=== PATIENT | male | born 1960 | race Caucasian/White ===

== ENCOUNTER 2025-07-26 15:46 | Observation (INO) ==
--- NOTE | 2025-07-26 16:54 | RS.CXNS ---
Date of scheduled appointment: 07/26/25 Type: Cancel Reason for Cancel/NS: Pt sent for venous scan due to redness and pain in left (surgical) LE. Radiology department called to let us know he would not be attending therapy today.
[2025-07-26 18:20] LABS: IMMATURE GRANULOCYTE # (AUTO) 0.1 (0.0-1.0); IMMATURE GRANULOCYTE % (AUTO) 0.6 % (0.0-5.0); RDW COEFFICIENT OF VARIATION 13.2 % (11.6-14.8)
[2025-07-26 18:31] LABS: INR 1.1 SI (0.0-3.9)
[2025-07-26 18:33] LABS: CREATININE 1.09 mg/dL (0.60-1.10)
--- NOTE | 2025-07-26 21:07 | ED.PDOC ---
General [facility] ED Provider: Dr. TEJINDER CALL MD Chief Complaint: Extremity Swelling/Pain Stated Complaint: Patient is a 64-year-old male that is presenting to the emergency department from home via personal vehicle for evaluation of left lower extremity edema and pain. Patient states that he had a left knee total arthroplasty performed 4 days ago and then developed erythema and swelling around the knee as well as proximal calf around 2 days after this. He had an outpatient ultrasound ordered by his primary care physician and it did show signs consistent with a popliteal and peroneal DVT. Patient notes that he was started on Eliquis 2.5 mg twice daily immediately after the operation and has had a total of 8 doses. Has been compliant with his medication without any missed doses. He has also been taking a prophylactic antibiotic after the operation as well. He denies any fevers or chills. Denies noticed any purulent drainage from the postoperative site. States that he has had DVTs in the past and had a present similar to this. Denies any pleuritic pain, hemoptysis, or shortness of breath. Denies any chest pain. Time Seen by Provider: 07/26/25 16:30 Mode of Arrival: Walk-In Information Source: Patient Exam Limitations: No limitations Primary Care Provider: AURE JAMA Nursing and Triage Documentation Reviewed and Agree: Yes Opioid Naive vs. Tolerant Does Patient Take Opioids?: No Is Patient Opioid Naive?: Yes What is Opioid Naive?: *Opioid Naive implies the patient is not already taking opioids or not chronically receiving opioids on a daily basis. *PRN dosing is not "usually" associated with tolerance. *Patients are at higher risk of over-sedation and aspiration. What is Opioid Tolerant?: *Opioid Tolerance implies less than the expected response to an opioid. *Acquired tolerance is defined by the patient taking 60mg of oral morphine daily (or equianalgesic dose of another opioid) for 1 week or more. *Often associated with chronic pain. *May take more than usual dose to achieve desired pain control. Review of Systems Review Of Systems Constitutional: Denies Fever or Weakness Respiratory: Reports No symptoms; Denies Shortness of Breath Cardiac: Reports No symptoms GI: Reports No symptoms Musculoskeletal: Reports Muscle pain Skin: Reports Change in color Neurological: Reports No symptoms [facility] Medical History (Updated 07/27/25 @ 01:33 by ERICKA DUNNE RN) Factor 5 Leiden mutation, heterozygous D68.51 - Activated protein C resistance (ICD-10) Family History FATHER Coronary artery disease Diabetes BROTHER Coronary artery disease Mother Heart valve problem Social History Smoking and tobacco status: Never smoker Alcohol intake: never Surgical History (Updated 07/27/25 @ 01:33 by ERICKA DUNNE RN) H/O bilateral inguinal hernia repair Z98.890 - Other specified postprocedural states (ICD-10) Z87.19 - Personal history of other diseases of the digestive system (ICD-10) S/P revision of total knee Z96.659 - Presence of unspecified artificial knee joint (ICD-10) Total knee replacement status Z96.659 - Presence of unspecified artificial knee joint (ICD-10) Physical Exam Physical Exam Appearance: Reports Well-appearing Ill-appearing: None Pain Distress: Mild Neck: Supple Respiratory: Reports Airway patent, Breath sounds clear and Breath sounds equal Cardiovascular: Reports RRR and Pulses normal (Including bilateral DP pulses that were 2+) GI/: Reports Soft and Nontender Musculoskeletal: Reports Calf tenderness (Tenderness at the popliteal fossa as well as proximal calf on the left side but there is no diffuse tenderness to palpation over the left knee joint.) and Other (Edema and tenderness to palpation diffusely over the left proximal calf as well as popliteal fossa. Patient has a well-healing postsurgical scar over his left anterior knee joint without any signs of purulent drainage. ) Skin: Reports Other (Erythema without increased warmth over the proximal calf and distal thigh circumferentially) Neurological: Reports Sensation intact Physician Progress Note Physician Progress Note: Patient is a 64-year-old male with a history of factor V Leiden deficiency that is presenting to the emergency department for treatment of suspected DVT. Patient's primary care physician was concerned for possible DVT given his history of factor V Leiden deficiency and recent arthroplasty of the left knee. They did obtain an outpatient ultrasound study with results provided to us that show signs of DVT in the popliteal as well as peroneal veins. Patient was prophylactically on Eliquis 2.5 mg twice daily for the last 4 days after his operation which would make this a breakthrough DVT. We therefore will have the patient admitted and increase his Eliquis dosage. Should be noted that I am not concerned currently for a cellulitis or septic arthritis as the patient does not have significant tenderness to palpation on examination nor any increased warmth. Furthermore he has been prophylactically on antibiotics since the operation was performed has not been having any systemic infectious symptoms. Examination of the postsurgical site showed that it was healing well and had no signs of infection. Basic screening labs were obtained given the patient will be admitted and it showed a CBC with a mild anemia of 12.9. Basic metabolic panel and unremarkable findings. Admitted to observation bed for further management of peroneal and popliteal DVT Course Course 07/26/25 18:15 07/26/25 18:15 Orders, Labs, Meds: Lab Review 07/26/25 18:15 WBC 7.97 RBC 4.41 L Hgb 12.9 L Hct 39.6 L MCV 89.8 MCH 29.3 MCHC 32.6 RDW Coeff of Juanito 13.2 Plt Count 175 Immature Gran % (Auto) 0.6 Neut % (Auto) 69.2 Lymph % (Auto) 16.9 [place] % (Auto) 10.8 H Eos % (Auto) 2.1 Baso % (Auto) 0.4 Neut # (Auto) 5.5 Lymph # (Auto) 1.4 [place] # (Auto) 0.9 Eos # (Auto) 0.2 Baso # (Auto) 0.0 Immature Gran # (Auto) 0.1 PT 11.3 H INR 1.10 APTT 28.7 Sodium 135.1 Potassium 4.48 Chloride 99.2 Carbon Dioxide 29.5 Anion Gap 10.88 BUN 20.2 H Creatinine 1.09 Estimated GFR (MDRD) 68.00 BUN/Creatinine Ratio 18.53 Glucose 103.2 Calcium 9.67 Orders Category Date Time Status PLACE PATIENT OBSERVATION .TO [facility] (NON-MONITORED ADMISSION 07/26/25 19:25 Active BED) ACTIVITY .Early Mobilization for VTE Prevention CARE 07/26/25 19:53 Active INTAKE & OUTPUT Q8HR CARE 07/26/25 19:25 Active IP: INSERT SALINE LOCK ONCE CARE 07/26/25 19:25 Active VITAL SIGNS Q4H CARE 07/26/25 19:25 Active REGULAR DIET DIETARY 07/26/25 Dinner Ordered BASIC METABOLIC PANEL Stat LAB 07/26/25 18:15 Completed CBC W/ AUTO DIFF DAILY@0600 LAB 07/27/25 06:00 Ordered CBC W/ AUTO DIFF DAILY@0600 LAB 07/28/25 06:00 Ordered CBC W/ AUTO DIFF Stat LAB 07/26/25 18:15 Completed COMPREHENSIVE METABOLIC PANEL DAILY@0600 LAB 07/27/25 06:00 Ordered COMPREHENSIVE METABOLIC PANEL DAILY@0600 LAB 07/28/25 06:00 Ordered PT WITH INR Stat LAB 07/26/25 18:15 Completed PTT [PARTIAL THROMBOPLASTIN TIME] Stat LAB 07/26/25 18:15 Completed Acetaminophen [Tylenol] Meds 07/26/25 19:53 Active 650 mg PO Q4H PRN Apixaban [Eliquis] Meds 07/26/25 21:00 Active 10 mg PO BID RESUSCITATION STATUS Routine OTHERS 07/26/25 19:25 Ordered Medications Generic Name Dose Route Start Last Admin Trade Name Freq PRN Reason Stop Dose Admin Acetaminophen 650 mg 07/26/25 19:53 Acetaminophen 325 Mg Tablet PO Q4H PRN Mild Pain Acetaminophen 1,000 mg 07/26/25 23:32 Acetaminophen 500 Mg Tablet PO Q6H PRN Pain Apixaban 10 mg 07/26/25 21:00 07/26/25 21:12 Apixaban 5 Mg Tab PO 08/02/25 20:59 10 mg BID ROSS Administration Celecoxib 200 mg 07/27/25 09:00 Celecoxib 100 Mg Capsule PO BID ROSS Cyclobenzaprine HCl 10 mg 07/26/25 23:32 07/26/25 23:55 Cyclobenzaprine Hcl 10 Mg Tablet PO 10 mg TID PRN Administration muscle spasms Non-Formulary Medication 500 mg 07/26/25 23:45 Cefadroxil PO BID ROSS Oxycodone HCl 5 mg 07/26/25 23:47 07/26/25 23:55 Oxycodone Hcl 5 Mg Tablet PO 5 mg Q6H PRN Administration MODERATE PAIN Pregabalin 75 mg 07/26/25 23:45 07/26/25 23:55 Pregabalin 75 Mg Capsule PO 75 mg BID ROSS Administration Vital Signs: Temp Pulse Resp BP Pulse Ox 07/26/25 16:40 98.0 F 78 20 119/76 97 Discharge Plan Discharge Patient Disposition: PLACED OBSERVATION Discharge Problem: DVT (deep venous thrombosis), Edema of lower extremity Discharge Problem: (Ruled Out): Blood clot in vein Did you review [place] [employer] for ALL controlled substances?: Not Applicable ED Provider: TEJINDER CALL
[2025-07-26] MEDS: ELIQUIS PO SCH (21:12)
[2025-07-26] MEDS: OXYCODONE PO PRN (23:55)
[2025-07-26] MEDS: FLEXERIL PO PRN (23:55)
[2025-07-26] MEDS: LYRICA PO SCH (23:55)
[2025-07-27 01:50] VITALS: RESP 18; BMI 22.7
[2025-07-27] MEDS: TYLENOL PO PRN ×2 (03:53→08:19)
[2025-07-27 05:17] LABS: IMMATURE GRANULOCYTE # (AUTO) 0.1 (0.0-1.0); IMMATURE GRANULOCYTE % (AUTO) 0.8 % (0.0-5.0); RDW COEFFICIENT OF VARIATION 13.3 % (11.6-14.8)
[2025-07-27 05:24] VITALS: BP 122/71; PULSE 78; TEMP 97.5
[2025-07-27 05:31] LABS: CREATININE 0.89 mg/dL (0.60-1.10)
[2025-07-27] MEDS: CELEBREX PO SCH (08:57)
--- NOTE | 2025-07-27 09:12 | PCM.SS ---
[facility] Ad[facility] Date Admission Date: 07/26/25 Discharge Date Discharge Date: 07/27/25 Primary Care Physician Primary Care Physician: AURE JAMA Chief Complaint Reason For Visit: BREAKTHROUGH DVT History of Present Illness History of Present Illness: Admitted 07/26/25 20:12, this 64 year old /WHITE/M with pmh of Factor 5 presented to the ER with c/o DVT to LLE. Patient states he had L TKA revision in [place] on Tuesday07/23/25 and began noticing significant pain, redness, and swelling to the LLE. Contacted PCP and was sent for US of the leg. Found to have DVT of the popliteal and peroneal veins. Patient was presscribed eliquis 2.5 mg twice a day for post-op prophylaxis and has had a total of 8 doses. Also is taking prophylactic antibiotic as well. Denies any fever, chills, drainage to the post-op site or other symptoms. States the pain to his knee is worse than it has been but discussed this is likely to the DVT present as well. Denies any other complaints at this time. Admitted to med/surg observation. [facility] Medical History Factor 5 Leiden mutation, heterozygous D68.51 - Activated protein C resistance (ICD-10) Surgical History H/O bilateral inguinal hernia repair Z98.890 - Other specified postprocedural states (ICD-10) Z87.19 - Personal history of other diseases of the digestive system (ICD-10) S/P revision of total knee Z96.659 - Presence of unspecified artificial knee joint (ICD-10) Total knee replacement status Z96.659 - Presence of unspecified artificial knee joint (ICD-10) Family History FATHER Coronary artery disease Diabetes BROTHER Coronary artery disease Mother Heart valve problem Social History Smoking and tobacco status: Never smoker Alcohol intake: never Medications Mecications: Medications at Discharge (Home Meds & RX) acetaminophen 500 mg tablet 1,000 mg PO Q6H PRN fever or pain 07/26/25 apixaban 2.5 mg tablet (Eliquis) 2.5 mg PO BID 07/26/25 cefadroxil 500 mg capsule 500 mg PO BID 07/26/25 celecoxib 200 mg capsule (Celebrex) 200 mg PO BID 07/26/25 cyclobenzaprine 10 mg tablet 10 mg PO TID PRN muscle spasm 07/26/25 oxycodone 5 mg capsule 5 mg PO Q6H PRN pain 07/26/25 pregabalin 75 mg capsule (Lyrica) 75 mg PO BID 07/26/25 Allergies Allergies Allergy/AdvReac Type Severity Reaction Status Date / Time No Known Allergies Allergy Unverified 07/26/25 16:48 Review of Systems Constitutional: Reports No symptoms; Denies Fever, Chills or Sweats Head: Reports Normocephalic Eyes: Reports No symptoms Ears: Reports No symptoms Nose: Reports No symptoms Mouth: Reports No symptoms Throat: Reports No symptoms Cardiovascular: Reports No symptoms Respiratory: Reports No symptoms Gastrointestinal: Reports No symptoms Genitourinary: Reports No Symptoms Musculoskeletal: Reports Other (LLE pain, swelling, redness, warmth) Endocrine: Reports No symptoms Hematology: Reports No symptoms Immunology: Reports No symptoms Neurological: Reports No symptoms Psychiatric: Reports No symptoms Physical Examination Appearance: Positive No Apparent Distress and Alert and Oriented x3 Head: Positive Normocephalic and Atraumatic Eyes: Positive Not Examined ENT: Positive Not Examined Neck: Positive Supple and Trachea Midline Heart: Positive RRR and No Murmurs Respiratory: Positive Airway patent, Breath Sounds Clear, Bilaterally, Breath Sounds Equal and Respirations Nonlabored GI/: Positive Soft, Nontender, Bowel sounds normal and No Distention Extremities: Positive Edema (to L knee and mild down the leg, erythema surrounding post-op dressing) and Pedal Pulses Palpable Bilaterally Neurological: Positive Sensation Intact, Motor Intact, Reflexes Intact, Alert and Oriented Vital Signs (Last 4 Hours) Vital Signs Last 4 Hours: Vital Signs: Last 4 Hours 07/27/25 05:22 07/27/25 06:00 Temperature 97.5 F L Temperature Source Temporal Artery Scan Pulse Rate 78 Respiratory Rate 18 Blood Pressure 122/71 Blood Pressure Mean 88 Blood Pressure Location Right Arm Blood Pressure Position Supine O2 Sat by Pulse Oximetry 96 Oxygen Delivery Method Room Air Room Air Labs This Visit Labs This Visit: Labs This Visit 07/26/25 07/27/25 18:15 04:57 WBC 7.97 6.03 RBC 4.41 L 4.08 L Hgb 12.9 L 12.0 L Hct 39.6 L 37.4 L MCV 89.8 91.7 MCH 29.3 29.4 MCHC 32.6 32.1 RDW Coeff of Juanito 13.2 13.3 Plt Count 175 155 Immature Gran % (Auto) 0.6 0.8 Neut % (Auto) 69.2 72.2 Lymph % (Auto) 16.9 12.6 Love % (Auto) 10.8 H 11.8 H Eos % (Auto) 2.1 1.8 Baso % (Auto) 0.4 0.8 Neut # (Auto) 5.5 4.4 Lymph # (Auto) 1.4 0.8 Love # (Auto) 0.9 0.7 Eos # (Auto) 0.2 0.1 Baso # (Auto) 0.0 0.1 Immature Gran # (Auto) 0.1 0.1 PT 11.3 H INR 1.10 APTT 28.7 Sodium 135.1 132.9 L Potassium 4.48 4.32 Chloride 99.2 101.7 Carbon Dioxide 29.5 25.9 Anion Gap 10.88 9.62 BUN 20.2 H 19.4 Creatinine 1.09 0.89 Estimated GFR (MDRD) 68.00 86.00 BUN/Creatinine Ratio 18.53 21.79 Glucose 103.2 137.0 H Calcium 9.67 8.80 Total Bilirubin 0.44 AST 22.5 ALT 17.1 Alkaline Phosphatase 56.8 Total Protein 6.31 Albumin 3.45 L Globulin 2.86 Albumin/Globulin Ratio 1.20 Review Review Statement: I have independently reviewed and interpreted the labs/EKGs/imaging that were ordered by the ER provider. I have reviewed all outside records that are available currently in our EMR including imaging/notes/labs from previous visits. Plan Reccomendations/Plan: 1. DVT s/p L TKA revision - eliquis 10 mg twice a day x 7 days then 5 mg twice a day thereafter 2. S/P L TKA revision - continue pain regimen and antibiotic prophylaxis 3. Factor 5 Deficiency - not currently on any medications for this, follows with Hem Additional Planning: Case discussed with ED Physician, Dr. Duncan. DVT Prophylaxis: Eliquis Disposition: Admit to: Med/Surg Observation Discussed Plan of Care with Dr. Sanju Garnett. If patient discharged with Left Ventricular Systolic Dysfunction: na Discharged with a beta frank? [] If no, why not? [] Discharged with an temitope/arb? [] If no, why not? [] Review With Patient Reviewed with Patient and Family: Patient and family have been counseled on condition and care plan and have no immediate questions. I have personally discussed and reviewed the patient's visit/current labs/imaging/decision making with Dr. Polo Garnett, my supervising attending. Total number of minutes spent with patient 85 min. More than 50% of the time spent with this patient was devoted to counseling and coordination of care. Time of Admission: 07/26/25 20:12 Time of Discharge: 07/27/25 09:30 Discharge Plan Discharge Discharge Orders: Discharge Patient (ONCE); Ordered 07/27/25 Ordered By: JAMIN BEY Activity Restrictions/Additional Instructions: Diagnosis: DVT Diet: Regular Activity as tolerated. You are able to resume PT/OT this next week. Medications: [facility] * Eliquis 10 mg twice a day - you will complete a total of 7 days for treatment of DVT * Eliquis 5 mg twice a day - start this after completing high dose course Follow-up with your primary care provider this next week and orthopedic surgeon as scheduled. Instructions: Deep Vein Thrombosis (GEN), Precautions after Total Joint Replacement Surgery (GEN) Patient Disposition: HOME SELF-CARE Prescriptions: New Eliquis 5 mg tablet 10 mg PO BID Qty: 12 0RF Eliquis 5 mg tablet 5 mg PO BID Qty: 60 0RF Continued acetaminophen 500 mg tablet 1,000 mg PO Q6H PRN (Reason: fever or pain) celecoxib [Celebrex] 200 mg capsule 200 mg PO BID oxycodone 5 mg capsule 5 mg PO Q6H PRN (Reason: pain) cyclobenzaprine 10 mg tablet 10 mg PO TID PRN (Reason: muscle spasm) pregabalin [Lyrica] 75 mg capsule 75 mg PO BID cefadroxil 500 mg capsule 500 mg PO BID Discontinued Eliquis 2.5 mg tablet 2.5 mg PO BID Did you review [place] [employer] for ALL controlled substances?: No Discussed opioids are addictive and Narcan is available by prescription or from pharmacy.: No Condition: Fair
[2025-07-27] MEDS: NON-FORMULARY MEDICATION (Cefadroxil 500 mg capsule) PO SCH (09:33)
== END 2025-07-27 10:09 | disposition home or self-care (01) ==
LOC: MEDSURG B 15:46 → ED 15:46 → MEDSURG B 21:40
PROVIDERS: ADMIT Hospitalist; ATTEND Nurse Practitioner Family
DX: Z98.890 Other specified postprocedural states; I82.432 Acute embolism and thrombosis of left popliteal vein; M25.562 Pain in left knee; R22.42 Localized swelling, mass and lump, left lower limb; Z96.652 Presence of left artificial knee joint; I82.452 Acute embolism and thrombosis of left peroneal vein; Z79.899 Other long term (current) drug therapy; D68.51 Activated protein C resistance; Z79.01 Long term (current) use of anticoagulants; Z51.81 Encounter for therapeutic drug level monitoring